=== PATIENT | female | born 1965 | race Caucasian/White ===

== ENCOUNTER 2022-02-04 11:50 | Outpatient (CLI) | payer OTHER, SELFPAY | END 2022-02-04 11:51 | disposition home or self-care (01) | LOC: FBOREF 11:50 | PROVIDERS: PCP Family Medicine; Visit Provider Family Medicine | DX: Z12.4 Encounter for screening for malignant neoplasm of cervix (principal); B37.2 Candidiasis of skin and nail; E03.9 Hypothyroidism, unspecified; N95.1 Menopausal and female climacteric states | CPT/HCPCS: 87624; 88175 ==

== ENCOUNTER 2022-04-27 10:55 | Outpatient (CLI) | payer OTHER, SELFPAY ==
[2022-04-27 15:12] LABS: Cholesterol* 246 mg/dL (90-199)
[2022-04-27 15:13] LABS: HDL Cholesterol* 69 mg/dL (>=50); LDL Cholesterol Calculated 135 mg/dL (<100); Triglycerides* 212 mg/dL (40-149)
== END 2022-04-27 10:56 | disposition home or self-care (01) ==
LOC: FBOREF 10:55
PROVIDERS: PCP Family Medicine; Visit Provider Family Medicine
DX: E78.5 Hyperlipidemia, unspecified (principal)
CPT/HCPCS: 80061

== ENCOUNTER 2022-07-05 11:00 | Outpatient (CLI) | payer OTHER, SELFPAY ==
--- OUTSIDE RECORDS SUMMARY | 2022-07-07 15:17 | XMS_ITS | Clinical Summary ---
:1965 Author Organization [facility] [place] [address] Care Team Providers Name Role Phone None Primary Care Provider Unavailable Allergies Active Allergy Reactions Severity Noted Date Comments Morphine Itching 10/22/2006 Penicillins Rash 10/22/2006 Medications Medication Sig Dispensed Refills Start End Date Status Date levothyroxine Take 1 tablet by 90 tablet 3 Active (SYNTHROID) 112 mcg mouth before 8 tabletIndications: breakfast. Hypothyroidism, unspecified type betamethasone APPLY TOPICALLY 45 g 1 Active dipropionate 0.05% TO AFFECTED 8 (DIPROSONE 0.05% CREAM) AREA(S) TWICE 0.05 % creamIndications: DAILY Eczema, unspecified type estradiol (ESTRACE) 1 mg Take 1 tablet by 90 tablet 3 07/20/20 1 Active tabletIndications: Hot mouth once daily. 8 flashes due to menopause medroxyPROGESTERone Take 1 tablet by 90 tablet 3 Active (PROVERA) 2.5 mg mouth once daily. 8 tabletIndications: Hot flashes due to menopause gabapentin (NEURONTIN) Take 1 capsule by 270 capsule 3 01 Active 300 mg mouth 3 times 9 capsuleIndications: daily if needed Chronic foot pain, for Other unspecified laterality (Specify). HYDROcodone-acetaminophe Take 1 tablet by 90 tablet 0 09/15/19 1 Active n, 10-325 mg, (NORCO mouth 3 times 9 10-325) 10-325 mg per daily if needed tabletIndications: for Pain Controlled substance agreement signed, Chronic foot pain, unspecified laterality clonazePAM (KLONOPIN) 1 Take 1.5 tabs in 105 tablet 1 09/13/19 1 Active mg tabletIndications: the morning and 2 9 Generalized anxiety tabs in the disorder afternoon. busPIRone (BUSPAR) 5 mg Take 1 tab at 60 tablet 1 Active tabletIndications: bedtime x2 weeks, 9 Generalized anxiety then increase to disorder twice daily. HYDROcodone-acetaminophe Take 1 tablet by 90 tablet 0 09/13/19 1 Active n, 10-325 mg, (NORCO mouth 3 times 9 10-325) 10-325 mg per daily if needed tabletIndications: for Pain Max Controlled substance acetaminophen agreement signed, 4000mg in 24 Chronic foot pain, hours. unspecified laterality sertraline (ZOLOFT) 100 TAKE 1 & 1/2 (ONE 45 tablet 0 11/30/19 1 Active mg tabletIndications: & ONE-HALF) 9 Generalized anxiety TABLETS BY MOUTH disorder ONCE DAILY DULoxetine (CYMBALTA) 60 TAKE 1 CAPSULE BY 30 capsule 0 Active mg Delayed-release MOUTH ONCE DAILY 9 capsuleIndications: Generalized anxiety disorder Active Problems Problem Noted Date Hot flashes due to menopause 07/30/2018 Moderate episode of recurrent major depressive disorde r 11/21/2015 Chronic foot pain 11/12/2015 Generalized anxiety disorder 09/25/2015 Issue of repeat prescription 09/25/2015 Overview: Takes [place] 4/day for chronic foot pain. Multiple surgeries. Vitamin D deficiency 03/03/2015 Controlled substance agreement signed 11-19-13 ERX 07/02 Hypothyroidism 12/11/2012 Panic disorder without agoraphobia 12/16/2006 Resolved Problems Problem Noted Date Resolved Date Major depression, recurrent 11/06/2013 11/21/2015 Issue of repeat prescriptions 03/03/2011 09/25/2015 Overview: Taking Vicodin Unspecified hypothyroidism 12/15/2006 12/11/2012 Anxiety state, unspecified 12/15/2006 09/25/2015 Immunizations Name Administration Dates Next Due Influenza, IIV4 05/18/2018, 04/21/2017, 06/18/2014 Td (Age >=7 Years) 08/06/2005 Tdap 09/19/2015 Family History Medical History Relation Name Comments Hypertension Mother Psychiatric illness Mother depression a nd anxiety with much of family Stroke Mother heart blockages and TIA's Thyroid Disease Mother Asthma Son 2 Cancer-breast No Family History Relation Name Status Comments Brother Alive x3 Father Alive Maternal Grandfather Maternal Grandmother Mother Alive Paternal Grandfather Paternal Grandmother Sister Alive x3 Son 1 Alive X3 Son 2 Social History Tobacco Use Types Packs/Day Years Used Date Passive Smoke Exposure - Never Smoker Smokeless Tobacco: Never Used Tobacco Cessation: Counseling Given: Yes Alcohol Use Standard Drinks/Week Comments No 0 (1 standard drink = 0.6 oz pure alcoho l) Sex Assigned at Date Recorded Not on file Obstetrics History Para Term AB IAB SAB Ectopic Multiple Living Live Births 3 3 3 3 Date Outcome GA Total Labor/2nd/3rd Weight Sex Delivery Anes PTL Hafsa A 1 A5 Name Clin Labor Term Term Term Last Filed Vital Signs Vital Sign Reading Time Taken Comments Blood Pressure 137/75 09/26/2020 10:14 AM MANUFACTURING TECH Pulse 89 09/26/2020 10:14 AM MANUFACTURING TECH Temperature 36.9 ??C (98.4 ??F) 09/26/2020 10:14 AM MANUFACTURING TECH Respiratory Rate 18 09/26/2020 10:14 AM MANUFACTURING TECH Oxygen Saturation 98% 09/26/2020 10:14 AM MANUFACTURING TECH Inhaled Oxygen Concentration - - Weight 76.8 kg (169 lb 4.8 oz) 09/26/2020 10:14 AM MANUFACTURING TECH Height 171.5 cm (5' 7.5) 09/26/2020 10:14 AM MANUFACTURING TECH Body Mass Index 26.12 09/26/2020 10:14 AM MANUFACTURING TECH Plan of Treatment Health Maintenance Due Date Last Done Comments COVID-19 vaccine series (#1) 05/21/1965 HIV for age 15-65 11/20/1979 Hepatitis C screening for age 0411/19/1982 18-79 Zoster (shingles) series for age 0411/19/2014 50+ (1 of 2) Mammogram for age 45-75 03/23/2018 03/23/2017, 02/13/2010, 10/10/2007 BMI (ht and wt on same day) for 09/13/2019 09/13/2018, 07/02, age 18+ 05/18/2018, Additional history exists Depression screening for age 12+ 09/13/2019 09/13/2018, , 05/18/2018, Additional history exists Lipids for age 45-75 08/09/2021 08/09/2016, 06/18/2014, 02/13/2010, Additional history exists Influenza for age 50-64 04/01/2022 05/18/2018, 04/21/2017, 06/18/2014 Pap test for age 21-65 02/04/2025 02/04/2022, 02/04/2022, 12/28/2018, Additional history exists Tetanus booster 09/19/2025 09/19/2015, 08/06/2005 Colonoscopy through age 75 11/30/2025 12/01/2015, 6 Tdap Completed 09/19/2015 Results Not on filefrom Last 3 Months Insurance Payer Benefit Plan / Subscriber ID Effective Dates Phone Addre ss Type Group MEDICARE PART B MEDICARE PART B [id number] 2011-Present ATTN: CLAIMS - HB USE ONLY HB ONLY [address] [place] [address] MEDICARE - PB MEDICARE PB [id number] 2011-Present ATT N: CLAIMS USE ONLY ONLY [address] [place] [address] (Home) [place] [id number] [address] [place] Personal/Family Spouse [address] (Home) [phone] [place] ([place]) [phone] Care Teams Watch Repairer Apprentice Relationship Specialty Start Date End Date None PCP - General 09/26/20 .
== END 2022-07-05 11:01 | disposition home or self-care (01) ==
LOC: FBOREF 07-07 15:10
PROVIDERS: PCP Family Medicine; Visit Provider Family Medicine
DX: R35.0 Frequency of micturition (principal); N39.0 Urinary tract infection, site not specified
CPT/HCPCS: 87086; 87186

== ENCOUNTER 2023-02-09 10:48 | Outpatient (CLI) | payer OTHER, SELFPAY | END 2023-02-09 10:49 | disposition home or self-care (01) | PROVIDERS: PCP Family Medicine; Visit Provider Family Medicine | DX: I10 Essential (primary) hypertension (principal); E78.5 Hyperlipidemia, unspecified; E03.9 Hypothyroidism, unspecified; E55.9 Vitamin D deficiency, unspecified; Z13.9 Encounter for screening, unspecified | CPT/HCPCS: 80048; 84443; 85025 ==

== ENCOUNTER 2023-11-23 12:19 | Outpatient (CLI) | payer OTHER, SELFPAY ==
--- OUTSIDE RECORDS SUMMARY | 2023-11-23 12:22 | XMS_ITS | Clinical Summary ---
Author Name Unknown Organization [facility] [employer] [facility] Address [place], [place] [address] Care Team Providers Care Bomb Squad Officer Name Role Phone None Primary Care Provider Unavailabl e Allergies Active Allergy Reactions Criticality Noted Date Comments Morphine Itching 10/22/2006 Penicillins Rash 10/22/2006 Medications Medication Sig Dispensed Refills Start Date End Date Status levothyroxine (SYNTHROID) 112 mcg tabletIndications :Hypothyroidism, unspecified type Take 1 tablet by mouth before breakfast. 90 tablet 3 10/31/2017 Active estradiol (ESTRACE) 1 mg tabletIndications :Hot flashes due to menopause Take 1 tablet by mouth once daily. 90 tablet 3 07/20/2018 Active medroxyPROGESTERo ne (PROVERA) 2.5 mg tabletIndications :Hot flashes due to menopause Take 1 tablet by mouth once daily. 90 tablet 3 07/20/2018 Active gabapentin (NEURONTIN) 300 mg capsuleIndication s:Chronic foot pain, unspecified laterality Take 1 capsule by mouth 3 times daily if needed for Other (Specify). 270 capsule 3 09/13/2018 Active HYDROcodone-aceta minophen, 10-325 mg, (NORCO 10-325) 10-325 mg per tabletIndications :Controlled substance agreement signed,Chronic foot pain, unspecified laterality Take 1 tablet by mouth 3 times daily if needed for Pain 90 tablet 09/15/2018 Active clonazePAM (KLONOPIN) 1 mg tabletIndications :Generalized anxiety disorder Take 1.5 tabs in the morning and 2 tabs in the afternoon. 105 tablet 1 09/13/2018 Active HYDROcodone-aceta minophen, 10-325 mg, (NORCO 10-325) 10-325 mg per tabletIndications :Controlled substance agreement signed,Chronic foot pain, unspecified laterality Take 1 tablet by mouth 3 times daily if needed for Pain Max acetaminophen 4000mg in 24 hours. 90 tablet 09/13/2018 Active sertraline (ZOLOFT) 100 mg tabletIndications :Generalized anxiety disorder TAKE 1 & 1/2 (ONE & ONE-HALF) TABLETS BY MOUTH ONCE DAILY 45 tablet 11/29/2018 Active DULoxetine (CYMBALTA) 60 mg Delayed-release capsuleIndication s:Generalized anxiety disorder TAKE 1 CAPSULE BY MOUTH ONCE DAILY 30 capsule 05/22/2019 Active Active Problems Problem Noted Date Diagnosed Date Hot flashes due to menopause 07/30/2018 Moderate episode of recurrent major depressive d isorder 11/21/2015 Chronic foot pain 11/12/2015 Generalized anxiety disorder 09/25/2015 Issue of repeat prescription 09/25/2015 Overview: Takes [place] 4/day for chronic foot pain. Multiple surgeries. Vitamin D deficiency 03/03/2015 Controlled substance agreement signed 11-19-13 ER X 07/28/2014 Hypothyroidism 12/11/2012 Panic disorder without agoraphobia 12/16/2006 Resolved Problems Problem Noted Date Diagnosed Date Resolved Date Major depression, recurrent 11/06/2013 11/21/2015 Issue of repeat prescriptions 03/03/2011 09/25/2015 Overview: Taking Vicodin Unspecified hypothyroidism 12/15/2006 0 12/11/2012 Anxiety state, unspecified 12/15/2006 0 09/25/2015 Immunizations Name Administration Dates Next Due Influenza, IIV4 05/18/2018,04/21/2017,06/18/2014 Td (Age >=7 Years) 08/06/2005 Tdap 09/19/2015 Family History Medical History Relation Name Comments Hypertension Mother Psychiatric illness Mother depressi on and anxiety with much of family Stroke Mother heart blockages and TIA's Thyroid Disease Mother Asthma Son 2 Cancer-breast No Family History Relation Name Status Comments Brother Alive x3 Father Alive Maternal Grandfather Maternal Grandmother Mother Alive Paternal Grandfather Paternal Grandmother Sister Alive x3 Son 1 Alive X3 Son 2 Social History Tobacco Use Types Packs/Day Years Used Date Smoking Tobacco: Passive Smo ke Exposure - Never Smoker Smokeless Tobacco: Never Tobacco Cessation:Counseling Given: Yes Alcohol Use Standard Drinks/Week Comments No 0 (1 standard drink = 0.6 oz pur e alcohol) PHQ-2 Answer Date Recorded PHQ-2 Score 2 09/30/2018 Sex and Gender Information Value Date Recorded Sex Assigned at Not on file Gender Identity Not on file Sexual Orientation Not on file Obstetrics History Para Term AB IAB SAB Ectopic Multiple Livin g Live Births 3 3 3 3 Date Outcome GA Total Labor Labor/2nd/3rd Weight Sex Delivery Anes PTL Hafsa A1 A5 Name Cl in Term Term Term Last Filed Vital Signs Vital Sign Reading Time Taken Comments Blood Pressure 137/75 09/26/2020 10:14 AM MANAGER CULTURE Pulse 85 12/16/2022 1:42 PM CDT Temperature 36.9 ??C (98.4 ??F) 09/26/2020 10:[address] Respiratory Rate 18 09/26/2020 10:14 AM MANAGER CULTURE Oxygen Saturation 96% 12/16/2022 1:42 PM CDT Inhaled Oxygen Concentration - - Weight 81.8 kg (180 lb 6.4 oz) 12/16/2022 1:42 P M CDT Height 171.5 cm (5' 7.5) 09/26/2020 10:14 AM CS T Body Mass Index 27.84 09/26/2020 10:14 AM MANAGER CULTURE Plan of Treatment Health Maintenance Due Date Last Done Comments HIV for age 15-65 11/20/1979 Hepatitis C screening for age 18-79 1982 Zoster (shingles) series for age 50+ (1 of 2) 2014 Mammogram for age 45-75 03/23/2018 03/23/20 17, 02/13/2010, 10/10/2007 BMI (ht and wt on same day) for age 18+ 09/13/2019 09/13/2018, 07/20/2018, 05/18/2018, Additional history exists Depression screening for age 12+ 09/13/2019 09/13/2018, 07/20/2018, 05/18/2018, Additional history exists Lipids for age 45-75 08/09/2021 08/09/2016, 06/18/2014, 02/13/2010, Additional history exists COVID-19 vaccine series ( season) 2023 07/21/2021, 11/28/2020, 11/01/2020 Influenza for age 50-64 04/01/2024 05/18/20 18, 04/21/2017, 06/18/2014 Pap test for age 21-65 02/04/2025 2, 02/04/2022, 12/28/2018, Additional history exists Tetanus booster 09/19/2025 09/19/2015, 08/06/2005 Colonoscopy through age 75 11/30/2025 12/01/2015, Tdap Completed 09/19/2015 Pneumococcal series for age 6-64 Aged Out No longer eligible based on patient's age to complete this topic Procedures Procedure Name Priority Date/Time Associated Diagnosis Comments HPV THIN PREP Routine 02/04/2022 11:43 AM CDT XR MAMMO BILAT SCREENING Routine 03/23/2017 10:18 AM CDT Visit for screening mammogram LIPID PANEL W REFLEX MEASURED LDL Routine 08/09/2016 11:27 AM MANAGER CULTURE Hypothyroidism, unspecified type COLONOSCOPY SCREENING Routine 12/01/2015 Special screening for malignant neoplasms, colon from Last 3 Months or Most Recently Relevant to Health Maintenance Results * HPV HIGH RISK (02/04/2022 11:43 AM CDT) TYPE 16 Negative Negative 02/08/2022 2:40 PM CDT [facility] TYPE 18 Negative Negative 02/08/2022 2:40 PM CDT [facility] OTHER HIGH RISK TYPES Negative Negative 02/08/2022 2:40 PM CDT [facility] TR[facility] LAB[facility] Other (Cervical) 02/04/2022 11:43 AM CDT 02/05/2022 1:21 PM CDT [facility] - 02/08/2022 2:40 PM CDT HPV types 16, 18, 31, 33, 35, 39, 45, 51, 52, 56, 58, 59, 66 and 68 DNA were undetectable or below the pre-set threshold. Methodology: Radha Sherly 4800 HPV Test Brandon Granda MD MICROBIOLOGY [facility]-CENTRAL LABORATORY [address] [place] [address], [place] * XR MAMMO BILAT SCREENING (03/23/2017 10:18 AM CDT) Anatomical Region Laterality Modality BREASTS, Breast Left, Breast Right Bilateral Mammography Impressions 03/23/2017 10:37 AM CDT ??There is no radiographic evidence for malignancy. ??Recommend annual mammograms. A lay language report of this examination will be provided to the patient. MAMMOGRAM ASSESSMENT: ??ACR 2 Benign Narrative 03/23/2017 10:37 AM CDT XR MAMMO BILAT SCREENING [[id number]] CLINICAL HISTORY: ??This is an asymptomatic 51 y.o. patient. INDICATION FOR EXAM: Mammogram Screening. TECHNIQUE: CC & MLO views were obtained. ??This digital study was evaluated with the assistance of Computer-Aided Detection. COMPARISON FILMS: Yes 02/13/10 TRUNG DIAGNOSTIC IMAGING FINDINGS: ??Mammographically, the breast tissue has scattered fibroglandular densities. ??No suspicious masses or microcalcifications. ?? Benign appearing calcifications within both breasts. Brandon Granda MD MAMMO * (ABNORMAL) LIPID PANEL W REFLEX MEASURED LDL (08/09/2016 11:27 AM MANAGER CULTURE) CHOLESTEROL,TOTAL 265(H) 100 - 199 mg/dL 08/09/2016 12:30 PM MANAGER CULTURE [facility] TRIGLYCERIDES 104 <150 mg/dL 08/09/2016 12:30 PM MANAGER CULTURE [facility] HDL CHOLESTEROL 70 >40 mg/dL 7 12:30 PM MANAGER CULTURE [facility] NON-HDL CHOLESTEROL 195(H) <145 mg/dl 08/09/2016 12:30 PM MANAGER CULTURE [facility] CHOL/HDL RATIO 3.79 <4.50 08/09/2016 12:30 PM MANAGER CULTURE [facility] LDL CHOLESTEROL 174(H) <=130 mg/dL 08/09/2016 12:30 PM MANAGER CULTURE [facility] PATIENT STATUS NOT GIVEN 08/09/2016 12:30 PM MANAGER CULTURE [facility] Blood BLOOD SPECIMEN / Unknown Venipuncture / Unknown 08/09/2016 11:27 AM MANAGER CULTURE 08/09/2016 11:27 AM MANAGER CULTURE Brandon Granda MD CHEMISTRY [facility] [address] [place] [address] * COLONOSCOPY SCREENING (12/01/2015) Brandon Granda MD GI PROCEDURE ORD from Last 3 Months or Most Recently Relevant to Health Maintenance Care Teams Bomb Squad Officer Relationship Specialty Start Date End Date None . PCP - General 09/26/20
== END 2023-11-23 12:20 | disposition home or self-care (01) ==
PROVIDERS: PCP Family Medicine; Visit Provider Family Medicine
DX: E03.9 Hypothyroidism, unspecified (principal)
CPT/HCPCS: 80048; 84443

== ENCOUNTER 2024-02-21 11:20 | Outpatient (CLI) | payer OTHER, SELFPAY ==
--- OUTSIDE RECORDS SUMMARY | 2024-02-21 11:22 | XMS_ITS | Clinical Summary ---
Author Organization [employer] [facility] Address [place], [place] [address] Care Team Providers Care Engravings Polisher Name Role Phone None Primary Care Provider [...] Issue of repeat prescription 09/25/2015 Overview: Takes [place] 4/day for chronic foot pain. Multiple surgeries. [...] Outcome GA Total Labor Labor/2nd/3rd Weight Sex Type Anes PTL Hafsa A1 A5 Name Clin Term Term Term Last Filed Vital Signs Vital Sign Reading Time Taken Comments Blood Pressure 137/75 09/26/2020 10:14 AM SENIOR SCIENCE CONSULTANT Pulse 85 12/16/2022 1:42 PM CDT Temperature 36.9 ??C (98.4 ??F) 09/26/2020 10:[address] Respiratory Rate 18 09/26/2020 10:14 AM SENIOR SCIENCE CONSULTANT Oxygen Saturation 96% 12/16/2022 1:42 PM CDT Inhaled Oxygen Concentration - - Weight 81.8 kg (180 lb 6.4 oz) 12/16/2022 1:42 P M CDT Height 171.5 cm (5' 7.5) 09/26/2020 10:14 AM CS T Body Mass Index 27.84 09/26/2020 10:14 AM SENIOR SCIENCE CONSULTANT Plan of Treatment Health Maintenance Due Date [...] REFLEX MEASURED LDL Routine 08/09/2016 11:27 AM SENIOR SCIENCE CONSULTANT Hypothyroidism, unspecified type COLONOSCOPY SCREENING Routine 12/01/2015 Special screening for malignant neoplasms, colon from Last 3 Months or Most Recently Relevant to Health Maintenance Results * HPV HIGH RISK (02/04/2022 11:43 AM CDT) TYPE 16 Negative Negative 02/08/2022 2:40 PM CDT [facility] TR[facility] LAB[facility]AT[facility] TYPE 18 Negative Negative 02/08/2022 2:40 PM CDT [facility] TRAL LAB[facility] OTHER HIGH RISK TYPES Negative Negative 02/08/2022 2:40 PM CDT [facility] TR[facility] LAB[facility] Other (Cervical) 02/04/2022 11:43 AM CDT 02/05/2022 1:21 PM CDT Narrative [facility]AL [facility] - 02/08/2022 2:40 PM CDT HPV types 16, 18, 31, 33, 35, 39, 45, 51, 52, 56, 58, 59, 66 and 68 DNA were undetectable or below the pre-set threshold. Methodology: Radha Sherly 4800 HPV Test Brandon Granda MD MICROBIOLOGY [facility]-CENTRAL LABORATORY [address] [place] [address], [place] * XR MAMMO BILAT SCREENING (03/23/2017 10:18 AM CDT) Anatomical Region Laterality Modality BREASTS, Breast Left, Breast Right Bilateral Mammography Impressions 03/23/2017 10:37 AM CDT ??There is no radiographic evidence for malignancy. ??Recommend annual mammograms. A lay language report of this examination will be provided to the patient. MAMMOGRAM ASSESSMENT: ??ACR 2 Benign Narrative 03/23/2017 10:37 AM CDT XR MAMMO BILAT SCREENING [[id number]] CLINICAL HISTORY: ??This is an asymptomatic 51 [...] W REFLEX MEASURED LDL (08/09/2016 11:27 AM SENIOR SCIENCE CONSULTANT) CHOLESTEROL,TOTAL 265(H) 100 - 199 mg/dL 08/09/2016 12:30 PM SENIOR SCIENCE CONSULTANT [facility] TRIGLYCERIDES 104 <150 mg/dL 08/09/2016 12:30 PM SENIOR SCIENCE CONSULTANT [facility] HDL CHOLESTEROL 70 >40 mg/dL 7 12:30 PM SENIOR SCIENCE CONSULTANT [facility] NON-HDL CHOLESTEROL 195(H) <145 mg/dl 08/09/2016 12:30 PM SENIOR SCIENCE CONSULTANT [facility] CHOL/HDL RATIO 3.79 <4.50 08/09/2016 12:30 PM SENIOR SCIENCE CONSULTANT [facility] LDL CHOLESTEROL 174(H) <=130 mg/dL 08/09/2016 12:30 PM SENIOR SCIENCE CONSULTANT [facility] PATIENT STATUS NOT GIVEN 08/09/2016 12:30 PM SENIOR SCIENCE CONSULTANT [facility] Blood BLOOD SPECIMEN / Unknown Venipuncture / Unknown 08/09/2016 11:27 AM SENIOR SCIENCE CONSULTANT 08/09/2016 11:27 AM SENIOR SCIENCE CONSULTANT Brandon Granda MD CHEMISTRY [facility] [address] [place] [address] * COLONOSCOPY SCREENING (12/01/2015) Brandon Granda MD GI PROCEDURE ORD from Last 3 Months or Most Recently Relevant to Health Maintenance Care Teams Engravings Polisher Relationship Specialty Start Date End Date None . PCP - General 09/26/20
== END 2024-02-21 11:21 | disposition home or self-care (01) ==
PROVIDERS: PCP Family Medicine; Visit Provider Family Medicine
DX: E78.2 Mixed hyperlipidemia (principal); E03.9 Hypothyroidism, unspecified; R82.90 Unspecified abnormal findings in urine
CPT/HCPCS: 80061; 84443; 87086

== ENCOUNTER 2024-06-22 11:30 | Outpatient (CLI) | payer OTHER, SELFPAY ==
--- OUTSIDE RECORDS SUMMARY | 2024-06-22 11:33 | XMS_ITS | Clinical Summary ---
Author Organization [facility] Address [place], [place] [address] Care Team Providers Care Civil Litigation Attorney Name Role Phone None Primary Care Provider [...] disorder 09/25/2015 Issue of repeat prescription 09/25/2015 Overview (09/25/2015): Takes [place] 4/day for chronic foot pain. Multiple surgeries. Vitamin D deficiency 03/03/2015 Controlled substance agreement signed 11-19-13 ER X 07/28/2014 Hypothyroidism 12/11/2012 Panic disorder without agoraphobia 12/16/2006 Resolved Problems Problem Noted Date Diagnosed Date Resolved Date Major depression, recurrent 11/06/2013 11/21/2015 Issue of repeat prescriptions 03/03/2011 09/25/2015 Overview (03/03/2011): Taking Vicodin Unspecified hypothyroidism 12/15/2006 0 12/11/2012 [...] Comments Blood Pressure 137/75 09/26/2020 10:14 AM SHOW OPERATIONS SUPERVISOR Pulse 85 12/16/2022 1:42 PM CDT Temperature 36.9 C (98.4 F) 09/26/2020 10:14 AM SHOW OPERATIONS SUPERVISOR Respiratory Rate 18 09/26/2020 10:14 AM SHOW OPERATIONS SUPERVISOR Oxygen Saturation 96% 12/16/2022 1:42 PM CDT Inhaled Oxygen Concentration - - Weight 81.8 kg (180 lb 6.4 oz) 12/16/2022 1:42 P M CDT Height 171.5 cm (5' 7.5) 09/26/2020 10:14 AM CS T Body Mass Index 27.84 09/26/2020 10:14 AM SHOW OPERATIONS SUPERVISOR Plan of Treatment Health Maintenance Due Date Last Done Comments HIV for age 15-65 11/20/1979 Hepatitis C screening for age 18-79 1982 Zoster (shingles) series for age 50+ (1 of 2) 2014 BMI (ht and wt on same day) for age 18+ 09/13/2019 09/13/2018, 07/20/2018, 05/18/2018, Additional history exists Depression screening for age 12+ 09/13/2019 09/13/2018, 07/20/2018, 05/18/2018, Additional history exists Lipids for age 45-75 08/09/2021 08/09/2016, 06/18/2014, 02/13/2010, Additional history exists COVID-19 vaccine series ( season) 2024 07/21/2021, 11/28/2020, 11/01/2020 Influenza for age 50-64 04/01/2024 05/18/20 18, 04/21/2017, 06/18/2014 Pap test for age 21-65 02/04/2025 2, 02/04/2022, 12/28/2018, Additional history exists Mammogram for age 45-75 02/21/2025 02/22/20 24, 03/23/2017, 02/13/2010, Additional history exists Tetanus booster 09/19/2025 09/19/2015, 08/06/2005 Colonoscopy through age 75 11/30/2025 12/01/2015, Tdap Completed 09/19/2015 Pneumococcal series for age 6-64 Aged Out No longer eligible based on patient's age to complete this topic Procedures Procedure Name Priority Date/Time Associated Diagnosis Comments XR MAMMO BILAT SCREENING Routine 02/22/2024 12:44 PM CDT Encounter for other screening for malignant neoplasm of breast HPV HIGH RISK Routine 02/04/2022 11:43 AM CDT LIPID PANEL W REFLEX MEASURED LDL Routine 08/09/2016 11:27 AM SHOW OPERATIONS SUPERVISOR Hypothyroidism, unspecified type COLONOSCOPY SCREENING Routine 12/01/2015 Special screening for malignant neoplasms, colon from Last 3 Months or Most Recently Relevant to Health Maintenance Results * XR MAMMO BILAT SCREENING (02/22/2024 12:44 PM CDT) Anatomical Region Laterality Modality BREASTS, Breast Left, Breast Right Bilateral Mammography Impressions 02/23/2024 3:10 PM CDT There is no radiographic evidence for malignancy. Recommend annual mammograms. MAMMOGRAM ASSESSMENT: ACR 1 Negative PATIENTS: You will also receive a letter with your examination results in an easy to read format. If you have questions about your results, please contact your referring provider. Narrative 02/23/2024 3:10 PM CDT For Patients: As a result of the Cures Act, medical imaging exams and procedure reports are released immediately into your electronic medical record. You may view this report before your referring provider. If you have questions, please contact your health care provider. XR MAMMO BILAT SCREENING [[id number]] CLINICAL HISTORY: This is an asymptomatic 58 y.o. patient. INDICATION FOR EXAM: Mammogram Screening. TECHNIQUE: CC & MLO views were obtained. This study was evaluated with the assistance of Computer-Aided Detection. COMPARISON FILM: Yes 03/23/17 FINDINGS: There are scattered areas of fibroglandular density. There are no dominant masses, suspicious micro calcifications or areas of architectural distortion. Brandon Granda MD MAMMO * HPV HIGH RISK (02/04/2022 11:43 AM CDT) TYPE 16 Negative Negative 02/08/2022 2:40 PM CDT [facility] TYPE 18 Negative Negative 02/08/2022 2:40 PM CDT [facility] OTHER HIGH RISK TYPES Negative Negative 02/08/2022 2:40 PM CDT [facility] Other (Cervical) 02/04/2022 11:43 AM CDT 02/05/2022 1:21 PM CDT Narrative [facility] - 02/08/2022 2:40 PM CDT HPV types 16, 18, 31, 33, 35, 39, 45, 51, 52, 56, 58, 59, 66 and 68 DNA were undetectable or below the pre-set threshold. Methodology: Radha Sherly 4800 HPV Test Brandon Granda MD MICROBIOLOGY [facility] [address] [place] [address], * (ABNORMAL) LIPID PANEL W REFLEX MEASURED LDL (08/09/2016 11:27 AM SHOW OPERATIONS SUPERVISOR) CHOLESTEROL,TOTAL 265(H) 100 - 199 mg/dL 08/09/2016 12:30 PM SHOW OPERATIONS SUPERVISOR [facility] TRIGLYCERIDES 104 <150 mg/dL 08/09/2016 12:30 PM SHOW OPERATIONS SUPERVISOR [facility] HDL CHOLESTEROL 70 >40 mg/dL 7 12:30 PM SHOW OPERATIONS SUPERVISOR [facility] NON-HDL CHOLESTEROL 195(H) <145 mg/dl 08/09/2016 12:30 PM SHOW OPERATIONS SUPERVISOR [facility] CHOL/HDL RATIO 3.79 <4.50 08/09/2016 12:30 PM SHOW OPERATIONS SUPERVISOR [facility] LDL CHOLESTEROL 174(H) <=130 mg/dL 08/09/2016 12:30 PM SHOW OPERATIONS SUPERVISOR [facility] PATIENT STATUS NOT GIVEN 08/09/2016 12:30 PM SHOW OPERATIONS SUPERVISOR [facility] Blood BLOOD SPECIMEN / Unknown Venipuncture / Unknown 08/09/2016 11:27 AM SHOW OPERATIONS SUPERVISOR 08/09/2016 11:27 AM SHOW OPERATIONS SUPERVISOR Brandon Granda MD CHEMISTRY [facility] [address] [place] [address] * COLONOSCOPY SCREENING (12/01/2015) Brandon Granda MD GI PROCEDURE ORD from Last 3 Months or Most Recently Relevant to Health Maintenance Care Teams Civil Litigation Attorney Relationship Specialty Start Date End Date None . PCP - General 09/26/20
== END 2024-06-22 11:31 | disposition home or self-care (01) ==
PROVIDERS: PCP Family Medicine; Visit Provider Family Medicine
DX: E78.2 Mixed hyperlipidemia (principal)
CPT/HCPCS: 80061

== ENCOUNTER 2024-11-12 10:15 | Outpatient (CLI) | payer OTHER, SELFPAY ==
[2024-11-15 06:47] LABS: HPV Source Cervical; HPV, High Risk by TMA Not Detected
== END 2024-11-12 10:16 | disposition home or self-care (01) ==
PROVIDERS: PCP Family Medicine; Visit Provider Family Medicine
DX: E78.5 Hyperlipidemia, unspecified (principal); I10 Essential (primary) hypertension; E03.9 Hypothyroidism, unspecified; E55.9 Vitamin D deficiency, unspecified; Z12.4 Encounter for screening for malignant neoplasm of cervix; Z11.51 Encounter for screening for human papillomavirus (HPV)
CPT/HCPCS: 80048; 82306; 84439; 84443; 85025; 87624; 87625; 88141; 88142

== ENCOUNTER 2024-12-07 10:43 | Outpatient (CLI) | payer OTHER, SELFPAY ==
[2024-12-07 14:15] LABS: SARS PCR* Negative SARS-CoV-2 (Negative)
== END 2024-12-07 10:44 | disposition home or self-care (01) ==
LOC: FBOREF 10:43
PROVIDERS: PCP Family Medicine; Visit Provider Family Medicine
DX: R09.81 Nasal congestion (principal)
CPT/HCPCS: 87635

== ENCOUNTER 2025-04-24 12:05 | Outpatient (CLI) | payer OTHER, SELFPAY | END 2025-04-24 12:06 | disposition home or self-care (01) | PROVIDERS: PCP Family Medicine; Visit Provider Family Medicine | DX: E03.9 Hypothyroidism, unspecified (principal); I10 Essential (primary) hypertension; E78.2 Mixed hyperlipidemia | CPT/HCPCS: 80048; 80061; 84439; 84443 ==